=== PATIENT | female | born 1990 | race Caucasian/White ===

== ENCOUNTER 2017-05-17 18:12 | Outpatient (CLI) | END 2017-05-17 22:21 | disposition home or self-care (01) ==

== ENCOUNTER 2017-05-17 22:30 | Emergency (ER) | END 2017-05-17 23:55 | disposition home or self-care (01) ==

== ENCOUNTER 2017-06-16 18:26 | Inpatient (IN) | END 2017-06-19 13:20 | disposition home or self-care (01) | DRG 775 ==